=== PATIENT | male | born 1990 | race Asian ===

== ENCOUNTER 2016-04-29 23:37 | Emergency (ER) | payer OTHER ==
[2016-04-29 23:42] VITALS: BP 153/94; PULSE 93; TEMP 97.9; BMI 46.8
[2016-04-30 00:32] LABS: URINE APPEARANCE CLEAR; URINE BILIRUBIN NEGATIVE (NEGATIVE); URINE BLOOD NEGATIVE (NEGATIVE); URINE COLOR YELLOW; URINE GLUCOSE (UA) NEGATIVE (NEGATIVE); URINE KETONE TRACE (NEGATIVE); URINE LEUK ESTERASE NEGATIVE (NEGATIVE); URINE NITRITE NEGATIVE (NEGATIVE); URINE PROTEIN NEGATIVE (NEGATIVE); URINE UROBILINOGEN NEGATIVE E.U./dl (0.2-1.0)
[2016-04-30] MEDS ORDERED: KETOROLAC TROMETHAMINE 60 MG/2 ML VIAL IM ONE (00:52)
[2016-04-30] MEDS ORDERED: METHOCARBAMOL 500 MG TABLET PO ONE (00:52)
[2016-04-30] MEDS ORDERED: METHOCARBAMOL 500 MG TABLET ONE (00:55)
[2016-04-30] MEDS ORDERED: KETOROLAC TROMETHAMINE 60 MG/2 ML VIAL ONE (00:55)
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
== END 2016-04-30 01:58 | disposition home or self-care (01) ==
LOC: JER 23:37
PROC: 3E0233Z Introduction of Anti-inflammatory into Muscle, Percutaneous Approach (ICD-10-PCS; principal; 2016-04-29)
DX: M54.5 Low back pain (principal)
CPT/HCPCS: 72100-TC; 81003; 96372; 99282-25

== ENCOUNTER 2018-02-14 05:45 | Emergency (ER) | payer OTHER ==
[2018-02-14 05:57] VITALS: BP 155/92; PULSE 98; TEMP 98.9; BMI 34.9
--- NOTE | 2018-02-14 06:13 | PDOC ---
History of Present Illness - General Chief Complaint: Ear Problem Stated Complaint: EARACHE/THROAT PAIN Time Seen by Provider: 02/14/18 06:13 History Source: Patient Exam Limitations: No Limitations - History of Present Illness Initial Comments: 02/14/18 06:25 Best Contact: PCP:Dr. Gastelum Pmhx:0 Pshx:0 Allergies:NKDA FH:0 Social Hx: Cigarettes/ denies Alcohol/ social Drugs/denies 27-year-old male presents to the ER complaining of 5/10 soreness to the throat 3 days with right sided ear pressure as of this morning but denies fever, chills , headache, dizziness, lightheadedness, facial pain, rhinorrhea, nasal congestion, neck pain/stiffness, back pains, chest pain, shortness of breath, abdominal pains. Patient denies any other complaints. Denies taking any pain medication. Past History - Past Medical History Allergies/Adverse Reactions: Allergies Allergy/AdvReac Type Severity Reaction Status Date / Time No Known Allergies Allergy Verified 02/14/18 05:55 Home Medications: Ambulatory Orders Amoxicillin - [Amoxicillin 500mg Capsule -] 500 mg PO TID #30 capsule 02/14/18 COPD: No Hypercholesterolemia: Yes - Surgical History Appendectomy: Yes - Immunization History Immunization Up to Date: Yes - Suicide/Smoking/Psychosocial Hx Smoking Status: No Smoking History: Never smoked Have you smoked in the past 12 months: No Number of Cigarettes Smoked Daily: 0 Information on smoking cessation initiated: No Hx Alcohol Use: No Drug/Substance Use Hx: No Substance Use Type: Alcohol Review of Systems - Review of Systems Able to Perform ROS?: Yes Comments:: 02/14/18 06:23 CONSTITUTIONAL: Absent: fever, chills, diaphoresis, generalized weakness, malaise, loss of appetite HEENT: +sore throat/right earache x3d Absent: rhinorrhea, nasal congestion,throat swelling, difficulty swallowing, mouth swelling,eye pain, visual Changes CARDIOVASCULAR: Absent: chest pain, loss of consciousness, palpitations, irregular heart rate, peripheral edema RESPIRATORY: Absent: cough, shortness of breath, dyspnea with exertion, orthopnea, wheezing, stridor, hemoptysis GASTROINTESTINAL: Absent: abdominal pain, abdominal distension, nausea, vomiting, diarrhea, constipation, melena, hematochezia GENITOURINARY: Absent: dysuria, frequency, urgency, hesitancy, hematuria, flank pain, genital pain MUSCULOSKELETAL: Absent: myalgia, arthralgia, joint swelling SKIN: Absent: rash, itching, pallor HEMATOLOGIC/IMMUNOLOGIC: Absent: easy bleeding, easy bruising, lymphadenopathy, frequent infections ENDOCRINE: Absent: unexplained weight gain, unexplained weight loss, heat intolerance, cold intolerance NEUROLOGIC: Absent: headache, focal weakness or paresthesias, dizziness, unsteady gait, seizure, mental status changes, bladder or bowel incontinence Is the patient limited Hungarian proficient: No *Physical Exam - Vital Signs Last Vital Signs Temp Pulse Resp BP Pulse Ox 98.9 F 98 H 18 155/92 98 02/14/18 05:56 02/14/18 05:56 02/14/18 05:56 02/14/18 05:56 02/14/18 05:56 - Physical Exam Comments: 02/14/18 06:25 GENERAL: Well developed, well nourished. Awake and alert. No acute distress. HEENT: Normocephalic, atraumatic. PERRLA, EOMI. No conjunctival pallor. Sclera are non- icteric. Moist mucous membranes. NECK: +Tonsils: erythematous with exudates Supple. Full ROM. No JVD. Carotid pulses 2+ and symmetric, without bruits. No thyromegaly. No lymphadenopathy. CARDIOVASCULAR: Regular rate and rhythm. No murmurs, rubs, or gallops. Distal pulses are 2+ and symmetric. PULMONARY: No evidence of respiratory distress. Lungs clear to auscultation bilaterally. No wheezing, rales or rhonchi. ABDOMINAL: Soft. Non-tender. Non-distended. No rebound or guarding. No organomegaly. Normoactive bowel sounds. MUSCULOSKELETAL Normal range of motion at all joints. No bony deformities or tenderness. No CVA tenderness. EXTREMITIES: No cyanosis. No clubbing. No edema. No calf tenderness. SKIN: Warm and dry. Normal capillary refill. No rashes. No jaundice. NEUROLOGICAL: Alert, awake, appropriate. Cranial nerves 2-12 intact. No deficits to light touch and temperature in face, upper extremities and lower extremities. No motor deficits in the in face, upper extremities and lower extremities. Normoreflexic in the upper and lower extremities. Normal speech. Toes are down- going bilaterally. Gait is normal without ataxia. PSYCHIATRIC: Cooperative. Good eye contact. Appropriate mood and affect. 02/14/18 06:28 *DC/Admit/Observation/Transfer Diagnosis at time of Disposition: Pharyngitis Qualifiers: Pharyngitis/tonsillitis etiology: unspecified etiology Qualified Code(s): J02.9 - Acute pharyngitis, unspecified - Discharge Dispostion Condition at time of disposition: Stable Decision to Admit order: No - Prescriptions Prescriptions: Amoxicillin - [Amoxicillin 500mg Capsule -] 500 mg PO TID #30 capsule - Referrals Referrals: Adán Holland MD [Primary Care Provider] - - Patient Instructions Printed Discharge Instructions: DI for Pharyngitis/Tonsillopharyngitis -- Adult Additional Instructions: Tylenol alternately with Motrin every 6 hours as needed for pain Your strep throat test was negative but your throat looks like strep. Therefore , you will be given amoxicillin. Antibiotics until completion Follow with your physician on Friday or Friday Return back to the ER for severe/persistent or worsening symptoms - Post Discharge Activity
[2018-02-14] MEDS ORDERED: AMOXICILLIN 500 MG CAPSULE (FP) PO ONE (06:31)
[2018-02-14] MEDS ORDERED: IBUPROFEN 400 MG TABLET (FP) PO ONE ×2 (06:31→06:34)
[2018-02-14] MEDS ORDERED: AMOXICILLIN 500 MG CAPSULE (FP) ONE (06:33)
== END 2018-02-14 06:51 | disposition home or self-care (01) ==
LOC: JER 05:45
DX: J02.9 Acute pharyngitis, unspecified (principal)
CPT/HCPCS: 87070; 99281-25

== ENCOUNTER 2018-03-04 06:52 | Emergency (ER) | payer OTHER ==
[2018-03-04 07:23] VITALS: BP 142/79; PULSE 118; TEMP 101.3; BMI 34.9
[2018-03-04] MEDS ORDERED: IBUPROFEN 600 MG TABLET (FP) PO ONE ×2 (07:44→07:54)
--- NOTE | 2018-03-04 07:44 | PDOC ---
*Physical Exam - Vital Signs Last Vital Signs Temp Pulse Resp BP Pulse Ox 101.3 F H 118 H 16 142/79 96 03/04/18 07:21 03/04/18 07:21 03/04/18 07:21 03/04/18 07:21 03/04/18 07:21 Medical Decision Making - Medical Decision Making 03/04/18 07:44 Mr Begum is a 27 yo M who presents to the ER with a complaint of Fever chills cough myalgia 3 days Rapid strep ordered - negative Influenza ordered - negative Pt seen by Midlevel Provider under my direct supervision Ancillary studies reviewed I agree with plan as outlined by Midlevel Provider *DC/Admit/Observation/Transfer Diagnosis at time of Disposition: Fever - Discharge Dispostion Disposition: HOME Condition at time of disposition: Improved - Referrals - Patient Instructions Printed Discharge Instructions: DI for Fever (Symptom) -- Adult Additional Instructions: Please take Motrin 600 mg every 8 hours for fever. Drink plenty of fluids. I will call you if you results of your strep are positive. - Post Discharge Activity
--- NOTE | 2018-03-04 08:33 | PDOC ---
History of Present Illness - General Chief Complaint: Respiratory Stated Complaint: COUGH Time Seen by Provider: 03/04/18 07:35 History Source: Patient Exam Limitations: No Limitations - History of Present Illness Initial Comments: 03/04/18 08:33 27-year-old male with no past medical history presents to the emergency room for evaluation of fever, cough, myalgia and one episode of vomiting over the past 3 days. Patient states no recent travel, recent illness or recent sick contacts. Timing/Duration: reports: other (3 days) Severity: reports: mild, moderate Associated Symptoms: reports: cough, fever/chills, muscle aches Past History - Past Medical History Allergies/Adverse Reactions: Allergies Allergy/AdvReac Type Severity Reaction Status Date / Time No Known Allergies Allergy Verified 03/04/18 07:23 Home Medications: Ambulatory Orders Amoxicillin - [Amoxicillin 500mg Capsule -] 500 mg PO TID #30 capsule 02/14/18 COPD: No Hypercholesterolemia: Yes - Surgical History Appendectomy: Yes - Immunization History Immunization Up to Date: Yes - Suicide/Smoking/Psychosocial Hx Smoking Status: No Smoking History: Never smoked Have you smoked in the past 12 months: No Number of Cigarettes Smoked Daily: 0 Hx Alcohol Use: Yes ("socially") Drug/Substance Use Hx: No Substance Use Type: Alcohol Patient Lives Alone: No Lives with/in: parents Review of Systems - Review of Systems Able to Perform ROS?: Yes Constitutional: Yes: Chills, Fever, Malaise HEENTM: Yes: Nose Congestion Respiratory: Yes: Cough Cardiac (ROS): No: Symptoms Reported ABD/GI: No: Symptoms Reported : No: Symptoms Reported Musculoskeletal: Yes: Joint Pain, Muscle Pain Integumentary: No: Symptoms Reported Neurological: No: Symptoms reported *Physical Exam - Vital Signs Last Vital Signs Temp Pulse Resp BP Pulse Ox 101.3 F H 118 H 16 142/79 96 03/04/18 07:21 03/04/18 07:21 03/04/18 07:21 03/04/18 07:21 03/04/18 07:21 - Physical Exam General Appearance: Yes: Nourished. No: Apparent Distress HEENT: positive: TMs Normal, Pharynx Normal. negative: Pale Conjunctivae Neck: positive: Supple Respiratory/Chest: positive: Lungs Clear, Normal Breath Sounds. negative: Respiratory Distress, Accessory Muscle Use Cardiovascular: positive: Regular Rhythm, Tachycardia. negative: Murmur Gastrointestinal/Abdominal: positive: Soft. negative: Tenderness Musculoskeletal: negative: CVA Tenderness Extremity: positive: Normal Capillary Refill Integumentary: positive: Normal Color, Warm, Moist Neurologic: positive: Normal Mood/Affect, Motor Strength 5/5 (ambulatory) Moderate Sedation - Procedure Monitoring Vital Signs: Procedure Monitoring Vital Signs Temperature 101.3 F H 03/04/18 07:21 Pulse Rate 118 H 03/04/18 07:21 Respiratory Rate 16 03/04/18 07:21 Blood Pressure 142/79 03/04/18 07:21 O2 Sat by Pulse Oximetry (%) 96 03/04/18 07:21 ED Treatment Course - Medications Given in the ED: ED Medications Discontinued Medications Generic Name Dose Route Start Last Admin Trade Name Freq PRN Reason Stop Dose Admin Ibuprofen 600 mg 03/04/18 07:44 03/04/18 08:02 Motrin - PO 03/04/18 07:45 600 mg ONCE ONE Administration Medical Decision Making - Medical Decision Making 03/04/18 08:12 Complaint: Fever chills cough myalgia 3 days Exam: Febrile and tachycardic nasal congestion noted. Plan: Influenza , rapid strep and Motrin ordered 03/04/18 08:46 Laboratory Tests 03/04/18 07:49 Influenza A (Rapid) Negative Influenza B (Rapid) Negative likely viral illness. recommend to continue with Motrin and Tylenol. 03/04/18 09:10 Patient will be notified via phone if strep is positive. Patient otherwise to continue with Motrin and Tylenol yet 03/04/18 10:28 Laboratory Tests 03/04/18 09:00 Group A Strep Rapid Negative *DC/Admit/Observation/Transfer Diagnosis at time of Disposition: Fever - Discharge Dispostion Disposition: HOME Condition at time of disposition: Improved - Referrals - Patient Instructions Printed Discharge Instructions: DI for Fever (Symptom) -- Adult Additional Instructions: Please take Motrin 600 mg every 8 hours for fever. Drink plenty of fluids. I will call you if you results of your strep are positive. - Post Discharge Activity
== END 2018-03-04 09:19 | disposition home or self-care (01) ==
LOC: JER 06:52
DX: R05 Cough (principal)
CPT/HCPCS: 87070; 87804; 87880; 99281-25

== ENCOUNTER 2019-06-04 13:35 | Emergency (ER) | payer OTHER ==
[2019-06-04 13:58] VITALS: BP 143/96; PULSE 86; TEMP 98.1; BMI 41.9
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
[2019-06-04] MEDS ORDERED: IBUPROFEN 400 MG TABLET (FP) PO ONE ×2 (15:14→15:16)
== END 2019-06-04 15:20 | disposition home or self-care (01) ==
LOC: JERFT 13:35
DX: S80.11XA Contusion of right lower leg, initial encounter (principal); V43.52XA Car driver injured in collision with other type car in traffic accident, initial encounter; Y92.415 Exit ramp or entrance ramp of street or highway as the place of occurrence of the external cause; E78.00 Pure hypercholesterolemia, unspecified
CPT/HCPCS: 73562-TC-RT-FY; 73590-TC-RT-FY; 99283-25

== ENCOUNTER 2021-07-28 09:22 | Emergency (ER) | payer OTHER ==
[2021-07-28 09:42] VITALS: BP 153/98; PULSE 105; TEMP 98.8; BMI 48.8
[2021-07-28] MEDS ORDERED: LACTATED RINGERS SOLUTION 1000 ML INFUS.BAG IV ONE (10:08)
[2021-07-28] MEDS ORDERED: ACETAMINOPHEN 1000 MG/100 ML BAG IVPB ONE (10:08)
[2021-07-28] MEDS ORDERED: METOCLOPRAMIDE HCL INJECTION 10 MG/2 ML VIAL IVPUSH ONE (10:08)
[2021-07-28] MEDS ORDERED: ACETAMINOPHEN INJECTION 100 ML IVPB ONE (10:15)
[2021-07-28] MEDS ORDERED: METOCLOPRAMIDE HCL INJECTION 10 MG/2 ML VIAL ONE (10:15)
[2021-07-28 10:49] LABS: INR 0.98 (0.83-1.09); PROTHROMBIN TIME (PATIENT) 11.3 SEC (9.7-13.0)
[2021-07-28 11:01] LABS: CALCIUM 9.3 mg/dL (8.5-10.1)
[2021-07-28 11:02] LABS: ALBUMIN 3.8 g/dl (3.4-5.0); BASO % 0.7 % (0-2.0); BLOOD UREA NITROGEN 7.3 mg/dL (7-18); EOS % 0.8 % (0-4.5); HEMATOCRIT 43.2 % (35.4-49); HEMOGLOBIN 15.3 GM/dL (11.7-16.9); LYMPH % 24.9 % (8-40); MCH 28.9 pg (25.7-33.7); MCHC 35.4 g/dl (32.0-35.9); MEAN CELL VOLUME 81.7 fl (80-96); MEAN PLT VOLUME 10.9 fl (7.5-11.1); NEUT % 66.6 % (42.8-82.8); PLATELET COUNT 173 10^3/uL (134-434); RBC 5.29 M/mm3 (4.00-5.60); RDW 12.6 % (11.9-15.9); WHITE BLOOD COUNT 7.9 K/mm3 (4.0-10.0)
[2021-07-28 11:06] LABS: BILIRUBIN,TOTAL 0.9 mg/dL (0.2-1); TOT PROT 7.1 g/dl (6.4-8.2)
[2021-07-28 11:10] LABS: CREATININE 0.8 mg/dL (0.55-1.3)
[2021-07-30 00:06] LABS: SARS-CoV-2 NAA Not Detected (Not Detected)
== END 2021-07-28 12:45 | disposition home or self-care (01) ==
LOC: JER 09:22
PROC: 3E0333Z Introduction of Anti-inflammatory into Peripheral Vein, Percutaneous Approach (ICD-10-PCS; principal; 2021-07-28)
PROC: 3E033GC Introduction of Other Therapeutic Substance into Peripheral Vein, Percutaneous Approach (ICD-10-PCS; 2021-07-28)
DX: R51.9 Headache, unspecified (principal); J32.9 Chronic sinusitis, unspecified; R09.81 Nasal congestion
CPT/HCPCS: 36415; 70450-TC; 71046-TC-FY; 80053; 85025; 85610; 85730; 93005; 93010; 99285-25; C9803-CS; U0003; U0005

== ENCOUNTER 2022-08-11 10:25 | Emergency (ER) | payer OTHER ==
[2022-08-11 10:30] VITALS: BP 137/94; PULSE 117; RESP 20; BMI 38.7
[2022-08-11] MEDS ORDERED: ACETAMINOPHEN 500 MG TABLET (FP) PO ONE (10:56)
[2022-08-11] MEDS ORDERED: IBUPROFEN 600 MG TABLET (FP) PO ONE ×2 (10:56→11:06)
[2022-08-11] MEDS ORDERED: ACETAMINOPHEN 325 MG TABLET (FP) ONE (11:06)
[2022-08-11] MEDS ORDERED: ACETAMINOPHEN 1000 MG/100 ML BAG IVPB ONE (11:08)
[2022-08-11] MEDS ORDERED: LACTATED RINGERS SOLUTION 1000 ML INFUS.BAG IV ONE (11:10)
[2022-08-11] MEDS ORDERED: ACETAMINOPHEN INJECTION 100 ML IVPB ONE (11:11)
[2022-08-11 12:00] LABS: VENOUS BASE EXCESS 1.5 mmol/L (-2-2); VENOUS O2 SATURATION 36.3 % (70-80); VENOUS PCO2 45.9 mmHg (38-52); VENOUS PH 7.389 (7.310-7.410)
[2022-08-11 12:03] LABS: BASO % 0.5 % (0-2.0); EOS % 0.4 % (0-4.5); HEMATOCRIT 46.4 % (35.4-49); HEMOGLOBIN 16.5 GM/dL (11.7-16.9); LYMPH % 21.1 % (8-40); MCH 28.9 pg (25.7-33.7); MCHC 35.5 g/dl (32.0-35.9); MEAN CELL VOLUME 81.3 fl (80-96); MEAN PLT VOLUME 11.6 fl (7.5-11.1); MONO % 10.5 % (3.8-10.2); NEUT % 67.5 % (42.8-82.8); PLATELET COUNT 126 10^3/uL (134-434); RBC 5.71 M/mm3 (4.00-5.60); RDW 13.1 % (11.9-15.9)
[2022-08-11 12:06] VITALS: TEMP 101.7
[2022-08-11 12:07] LABS: INR 1.07 (0.83-1.09); PROTHROMBIN TIME (PATIENT) 12.4 SEC (9.7-13.0)
[2022-08-11 12:09] LABS: ACTIVATED PTT 36.7 SECONDS (25.2-36.5)
[2022-08-11 12:20] LABS: CALCIUM 9.3 mg/dL (8.5-10.1)
[2022-08-11 12:21] LABS: BLOOD UREA NITROGEN 9.3 mg/dL (7-18)
[2022-08-11 12:26] LABS: BILIRUBIN,TOTAL 0.6 mg/dL (0.2-1)
== END 2022-08-11 13:44 | disposition home or self-care (01) ==
LOC: JER 10:25 → JERFT 10:25 → JER 13:44
PROC: 3E033NZ Introduction of Analgesics, Hypnotics, Sedatives into Peripheral Vein, Percutaneous Approach (ICD-10-PCS; principal; 2022-08-11)
DX: R05.9 Cough, unspecified (principal); R51.9 Headache, unspecified; R11.2 Nausea with vomiting, unspecified; J10.1 Influenza due to other identified influenza virus with other respiratory manifestations; Z20.822 Contact with and (suspected) exposure to COVID-19
CPT/HCPCS: 0241U-QW; 36415; 71045-TC-FY; 80053; 82550; 82553; 82803; 83605; 84484; 85025; 85610; 85730; 86850; 86900; 86901; 87040; 99285-25

== ENCOUNTER 2023-04-16 20:57 | Emergency (ER) | payer OTHER ==
[2023-04-16 21:05] VITALS: BP 136/95; PULSE 104; RESP 17; TEMP 97.8; BMI 38.7
== END 2023-04-16 21:27 | disposition home or self-care (01) ==
LOC: FER 20:57
DX: L03.012 Cellulitis of left finger (principal); R22.32 Localized swelling, mass and lump, left upper limb
CPT/HCPCS: 99282-25

== ENCOUNTER 2023-04-18 02:24 | Emergency (ER) | payer OTHER ==
[2023-04-18 02:33] VITALS: BMI 38.7
[2023-04-18] MEDS ORDERED: IBUPROFEN 400 MG TABLET (FP) PO ONE ×2 (06:14→06:22)
[2023-04-18 06:26] VITALS: BP 138/81; PULSE 84; RESP 15; TEMP 97.8
== END 2023-04-18 06:29 | disposition home or self-care (01) ==
LOC: JER 02:24
PROC: 0H9GXZZ Drainage of Left Hand Skin, External Approach (ICD-10-PCS; principal; 2023-04-18)
DX: L02.512 Cutaneous abscess of left hand (principal); R22.32 Localized swelling, mass and lump, left upper limb
CPT/HCPCS: 99283-25